=== PATIENT | female | born 1930 | race Caucasian/White ===

== ENCOUNTER → 2016-05-04 | Outpatient (CLI) | payer MEDICARE, BC ==
[~2016-05-04] MED LIST: ASPIRIN 81M81 MG/TA2 PO; BENICAR 20MG TA20 MG PO; BETAPACE 80MG80 MG PO; BYSTOLIC5 MG PO; CALCIUM 500500 M1 PO; CALCIUM 600 PLU1 TAB PO; CARDIZEM CD 12120 MG PO; CARDIZEM CD240 MG PO; CETIRIZINE10 MG PO; COMPAZINE 110 MG/TAB PO; COUMADIN 5MG5 MG/TAB PO; COUMADIN2.5 MG PO; DEXILANT60 MG PO; ELIQUIS 2.5 PO; ELIQUIS 5MG PO; FASLODEX250 MG/5 M IM; FEMARA 2.5MG2.5 MG PO; FENTANYL 25 MCG TD; FERRATE325 MG PO; FLONASE NASAL S16 GM NS; FLONASEALLERGY NS; IMDUR 30MG30 MG/TAB PO; IMDUR30 MG PO; INDERAL40 MG PO; ISOSORBIDE30 MG PO; K-DUR 10 MEQ T10 MEQ PO; K-DUR 2020 MEQ PO; KLOR-CON/EF25 MEQ PO; LANOXIN 0.120.125 MG PO; LASIX 20MG TABL20 MG PO; LASIX 40MG TABL40 MG PO; LEVAQUIN 5500 MG/TA1 PO; LEVOTHYROXINE0.1 MG PO; LISINOPRIL5 MG PO; LOPRESSOR 550 MG/TAB PO; MAG-OX 400400 MG/TAB PO; MAGNESIUM OXIDE PO; MUCINEX DM 30 M1 TE1 PO; MULTAQ400 MG PO; NATURAL POTASS595 MG PO; NEXIUM40 MG PO; NORCO 325 MG-101 TAB PO; OXY IR5 MG PO; PACERONE100 MG; PACERONE200 MG PO; PLAVIX 75MG TAB75 MG PO; PROTONIX 40MG T40 MG PO; PROVERA PO; SYNTHROID0.05 MG/TA PO; SYNTHROID0.125 MG/T PO; TIKOSYN0.25 MG PO; TOPROL XL 50MG50 MG PO; TOPROL XL50 MG PO; ULTRAM50 MG PO; VICODIN 5/5001 UDTAB PO; VITAMIN C500 MG PO; XARELTO20 MG PO; ZESTRIL 10MG10 MG PO; ZOCOR 20MG20 MG PO; ZOFRAN8 MG PO; ZYLOPRIM 100MG100 MG PO; ZYRTEC 10MG10 MG PO
== END ==
LOC: COL.RAD 09:55
DX: N28.1 Cyst of kidney, acquired (principal); R31.0 Gross hematuria; M41.86 Other forms of scoliosis, lumbar region; R93.7 Abnormal findings on diagnostic imaging of other parts of musculoskeletal system; K57.90 Diverticulosis of intestine, part unspecified, without perforation or abscess without bleeding
CPT/HCPCS: Q9967

== ENCOUNTER 2016-06-30 11:18 | Day surgery (SDC) | payer MEDICARE, BC ==
[~2016-06-30] VITALS: Ht 167.6 cm; Wt 65.4 kg
[~2016-06-30 11:18] MED LIST changes: -CALCIUM 600 PLU1 TAB PO; -FENTANYL 25 MCG TD; -FLONASEALLERGY NS; -NORCO 325 MG-101 TAB PO; -OXY IR5 MG PO; -PACERONE100 MG; -PACERONE200 MG PO; -TOPROL XL 50MG50 MG PO
[2016-06-30 12:30] LABS: INR 1.8 (0.8-3.0)
[2016-06-30 12:37] LABS: POTASSIUM 4.4 mmol/L (3.4-5.0)
[2016-06-30 12:58] VITALS: BP 131/64; PULSE 60; TEMP 97.7
[2016-06-30 13:12] LABS: THYROID STIMULATING HORMONE 3.31 uIU/mL (0.465-4.680)
== END 2016-06-30 13:41 ==
LOC: EUO 11:18 → COL.RAD 11:45 → EUO 13:41
PROVIDERS: Internal Medicine Interventional Cardiology
DX: I48.91 Unspecified atrial fibrillation (principal); Z95.0 Presence of cardiac pacemaker

== ENCOUNTER 2016-09-01 20:10 | Inpatient (IN) | payer MEDICARE, BC ==
[~2016-09-01] VITALS: Ht 167.6 cm; Wt 68.9 kg
[2016-09-01 20:54] LABS: BASO % 0.3 % (0.0-2.0); EOS # 0.1 (0.0-0.7); EOS % 1.3 % (0-4.0); GRAN % 63.8 % (42.2-75.2); LYMPH # 2.8 (1.2-3.4); LYMPH % 25.5 % (20.0-51.0); MEAN CELL VOLUME 100 fl (80.0-100.0); MEAN CORPUSCULAR HGB CONC 33 g/dl (33.0-37.0); MEAN PLATELET VOLUME 10.2 fl (7.4-10.4); MONO # 0.9 (0.1-0.6); MONO % 8.6 % (1.7-9.3); PLATELET COUNT 222 K/mm3 (130-400); RED BLOOD COUNT 3.57 M/mm3 (4.10-5.30); REDCELL DISTRIBUTION WIDTH-CV 13.9 % (11.5-14.5); WHITE BLOOD COUNT 10.9 K/mm3 (4.8-10.8)
[2016-09-01 20:56] LABS: HEMATOCRIT 35.7 % (37.0-47.0); HEMOGLOBIN 11.6 g/dl (12.5-16.0); MEAN CORPUSCULAR HEMOGLOBIN 32 pg (27.0-31.0)
[2016-09-01 21:02] LABS: ALBUMIN 3.8 gm/dL (3.5-5.0); BILIRUBIN,TOTAL 0.8 mg/dL (0.0-1.0); CREATININE, serum 2.29 mg/dL (0.52-1.25); POTASSIUM 3.1 mmol/L (3.4-5.0); TOTAL PROTEIN 7.1 gm/dL (6.4-8.2)
[2016-09-01 21:03] LABS: ADJUSTED CALCIUM 14.1 mg/dL (8.4-10.2); CALCIUM 13.9 mg/dL (8.4-10.2)
[2016-09-01 21:16] LABS: PH 7 (5-8); SQUAMOUS EPITHELIAL 0-2 /hpf; URINE APPEARANCE Cloudy; URINE BACTERIA None Seen /hpf; URINE BILIRUBIN Negative (NEGATIVE); URINE BLOOD 3+ (NEGATIVE); URINE COLOR Yellow; URINE GLUCOSE Negative (NEGATIVE); URINE KETONE Negative (NEGATIVE); URINE RBC >50 /hpf; URINE UROBILINOGEN Negative (NEGATIVE)
[2016-09-01] MEDS ORDERED: PACERONE100 MG (21:21)
[2016-09-01 21:31] LABS: INR 2.2 (0.8-3.0); PROTHROMBIN TIME 25.4 SECONDS (9.7-12.8)
[2016-09-01] MEDS ORDERED: LASIX 40MG TABL40 MG PO (23:02)
[2016-09-01] MEDS ORDERED: PACERONE200 MG PO (23:28)
[2016-09-01] MEDS ORDERED: FLONASEALLERGY NS (23:30)
[2016-09-01] MEDS ORDERED: NORCO 325 MG-101 TAB PO (23:34)
[2016-09-02 00:25] VITALS: BP 121/56; PULSE 63; TEMP 97.3
[2016-09-02] MEDS ORDERED: FENTANYL 25 MCG TD (00:45)
[2016-09-02] MEDS ORDERED: TOPROL XL 50MG50 MG PO (01:27)
[2016-09-02] MEDS ORDERED: PROTONIX 40MG T40 MG PO (01:29)
[2016-09-02] MEDS ORDERED: OXY IR5 MG PO (01:35)
[2016-09-02] MEDS ORDERED: MAG-OX 400400 MG/TAB PO (01:36)
[2016-09-02] MEDS ORDERED: CALCIUM 600 PLU1 TAB PO (01:37)
[2016-09-02 01:39] LABS: MAGNESIUM 2.5 mg/dL (1.6-2.3)
[2016-09-02] MEDS ORDERED: LOPRESSOR 550 MG/TAB PO (01:43)
[2016-09-02 02:10] LABS: THYROID STIMULATING HORMONE 5.55 uIU/mL (0.465-4.680)
[2016-09-02 02:51] LABS: THYROXINE (T4)-TOTAL 10.9 ug/dL (5.5-11.0)
[2016-09-02 03:33] LABS: BASO % 0.2 % (0.0-2.0); EOS # 0.1 (0.0-0.7); GRAN # 8.9 (1.4-6.5); GRAN % 73.6 % (42.2-75.2); HEMATOCRIT 33.3 % (37.0-47.0); HEMOGLOBIN 10.8 g/dl (12.5-16.0); LYMPH # 2.1 (1.2-3.4); LYMPH % 17.1 % (20.0-51.0); MEAN CELL VOLUME 101 fl (80.0-100.0); MEAN CORPUSCULAR HEMOGLOBIN 33 pg (27.0-31.0); MEAN CORPUSCULAR HGB CONC 32 g/dl (33.0-37.0); MONO # 0.9 (0.1-0.6); MONO % 7.6 % (1.7-9.3); PLATELET COUNT 176 K/mm3 (130-400); RED BLOOD COUNT 3.31 M/mm3 (4.10-5.30); WHITE BLOOD COUNT 12.1 K/mm3 (4.8-10.8)
[2016-09-02 03:42] LABS: CREATININE, serum 2.06 mg/dL (0.52-1.25); POTASSIUM 3.6 mmol/L (3.4-5.0)
[2016-09-02 03:50] VITALS: BP 114/56; PULSE 61; TEMP 97.4
[2016-09-02 04:15] LABS: CALCIUM 12.9 mg/dL (8.4-10.2)
[2016-09-02 09:08] VITALS: BP 103/60; PULSE 61; TEMP 97.5
[2016-09-02 09:57] LABS: CALCIUM 12.4 mg/dL (8.4-10.2); CREATININE, serum 2.02 mg/dL (0.52-1.25); POTASSIUM 3.4 mmol/L (3.4-5.0)
[2016-09-02] MEDS ORDERED: NATURAL POTASS595 MG PO (11:42)
[2016-09-02 11:43] VITALS: BP 110/53; PULSE 62; TEMP 97
[2016-09-02] MEDS ORDERED: VITAMIN C500 MG PO (11:46)
[2016-09-02 15:21] VITALS: BP 99/52; PULSE 61; TEMP 97.8
[2016-09-02 20:14] VITALS: BP 91/46; PULSE 61; TEMP 98.5
[2016-09-03 00:09] VITALS: BP 91/50; PULSE 62; TEMP 98.5
[2016-09-03 04:14] VITALS: BP 106/50; PULSE 61; TEMP 98.5
[2016-09-03 06:33] LABS: ADD PATHOLOGY DIFF REVIEW NO
[2016-09-03 06:54] LABS: MEAN CORPUSCULAR HGB CONC 31 g/dl (33.0-37.0); MEAN PLATELET VOLUME 10.5 fl (7.4-10.4); PLATELET COUNT 171 K/mm3 (130-400); RED BLOOD COUNT 2.88 M/mm3 (4.10-5.30); REDCELL DISTRIBUTION WIDTH-CV 14.4 % (11.5-14.5); WHITE BLOOD COUNT 10.3 K/mm3 (4.8-10.8)
[2016-09-03 06:55] LABS: HEMATOCRIT 30.8 % (37.0-47.0); HEMOGLOBIN 9.5 g/dl (12.5-16.0); MEAN CELL VOLUME 107 fl (80.0-100.0); MEAN CORPUSCULAR HEMOGLOBIN 33 pg (27.0-31.0)
[2016-09-03 07:13] LABS: ADJUSTED CALCIUM 12.9 mg/dL (8.4-10.2); ALBUMIN 2.6 gm/dL (3.5-5.0); BILIRUBIN,TOTAL 0.6 mg/dL (0.0-1.0); CALCIUM 11.8 mg/dL (8.4-10.2); CREATININE, serum 1.68 mg/dL (0.52-1.25); MAGNESIUM 2.1 mg/dL (1.6-2.3); POTASSIUM 4.1 mmol/L (3.4-5.0); TOTAL PROTEIN 5.3 gm/dL (6.4-8.2)
[2016-09-03 08:22] VITALS: BP 109/50; PULSE 60; TEMP 97.6
[2016-09-03 08:28] LABS: BAND 23 % (0-10); NEUTROPHILS 54 % (42.0-75.2); TOTAL CELLS COUNTED 100
[2016-09-03 12:18] VITALS: BP 105/50; PULSE 63; TEMP 97.4
[2016-09-03 15:38] VITALS: BP 101/49; PULSE 59; TEMP 97.4
[2016-09-03 20:26] VITALS: BP 107/52; PULSE 61; TEMP 97.7
[2016-09-04 00:06] VITALS: BP 105/46; PULSE 64; TEMP 97.5
[2016-09-04 05:10] VITALS: BP 107/48; PULSE 61; TEMP 98.8
[2016-09-04 09:05] VITALS: BP 128/41; PULSE 60; TEMP 97.2
[2016-09-04 09:23] LABS: CALCIUM 10.3 mg/dL (8.4-10.2); CREATININE, serum 1.49 mg/dL (0.52-1.25); MAGNESIUM 1.9 mg/dL (1.6-2.3); POTASSIUM 4.6 mmol/L (3.4-5.0)
[2016-09-04 11:57] LABS: BASO % 0.2 % (0.0-2.0); EOS # 0.1 (0.0-0.7); EOS % 2.1 % (0-4.0); GRAN # 4.1 (1.4-6.5); GRAN % 62.3 % (42.2-75.2); LYMPH # 1.7 (1.2-3.4); LYMPH % 26.4 % (20.0-51.0); MEAN CELL VOLUME 108 fl (80.0-100.0); MEAN CORPUSCULAR HGB CONC 30 g/dl (33.0-37.0); MEAN PLATELET VOLUME 10.8 fl (7.4-10.4); MONO # 0.6 (0.1-0.6); MONO % 8.5 % (1.7-9.3); PLATELET COUNT 143 K/mm3 (130-400); RED BLOOD COUNT 2.69 M/mm3 (4.10-5.30); REDCELL DISTRIBUTION WIDTH-CV 14.6 % (11.5-14.5); WHITE BLOOD COUNT 6.6 K/mm3 (4.8-10.8)
[2016-09-04 12:00] LABS: HEMATOCRIT 29.1 % (37.0-47.0); HEMOGLOBIN 8.8 g/dl (12.5-16.0); MEAN CORPUSCULAR HEMOGLOBIN 33 pg (27.0-31.0)
[2016-09-04 13:32] VITALS: BP 106/50; PULSE 64; TEMP 97.7
[2016-09-04 16:49] VITALS: BP 104/47; PULSE 65; TEMP 97.5
[2016-09-04 21:07] VITALS: BP 106/51; PULSE 64; TEMP 97.7
[2016-09-05 00:41] VITALS: BP 101/48; PULSE 64; TEMP 98.4
[2016-09-05 06:04] VITALS: BP 105/48; PULSE 60; TEMP 98.1
[2016-09-05 07:57] VITALS: BP 106/65; PULSE 64; TEMP 98
[2016-09-05 09:14] LABS: BASO % 0.1 % (0.0-2.0); EOS # 0.2 (0.0-0.7); EOS % 2.5 % (0-4.0); GRAN # 4.1 (1.4-6.5); GRAN % 57.6 % (42.2-75.2); LYMPH % 28.3 % (20.0-51.0); MEAN CELL VOLUME 107 fl (80.0-100.0); MEAN CORPUSCULAR HGB CONC 31 g/dl (33.0-37.0); MEAN PLATELET VOLUME 10.7 fl (7.4-10.4); MONO # 0.8 (0.1-0.6); MONO % 10.9 % (1.7-9.3); PLATELET COUNT 125 K/mm3 (130-400); RED BLOOD COUNT 2.92 M/mm3 (4.10-5.30); REDCELL DISTRIBUTION WIDTH-CV 14.6 % (11.5-14.5); WHITE BLOOD COUNT 7.1 K/mm3 (4.8-10.8)
[2016-09-05 09:15] LABS: HEMATOCRIT 31.3 % (37.0-47.0); HEMOGLOBIN 9.6 g/dl (12.5-16.0); MEAN CORPUSCULAR HEMOGLOBIN 33 pg (27.0-31.0)
[2016-09-05 12:09] VITALS: BP 117/51; PULSE 64; TEMP 97.9
[2016-09-05 14:27] LABS: CALCIUM 9.6 mg/dL (8.4-10.2); CREATININE, serum 1.27 mg/dL (0.52-1.25); POTASSIUM 4.6 mmol/L (3.4-5.0)
[2016-09-05 16:11] VITALS: BP 111/54; PULSE 60; TEMP 97.7
[2016-09-05 22:35] VITALS: BP 113/58; PULSE 63; TEMP 98.6
[2016-09-06 03:51] VITALS: BP 108/50; PULSE 60; TEMP 98.6
[2016-09-06 07:19] VITALS: BP 113/90; PULSE 58; TEMP 97.6
[2016-09-06 07:21] LABS: MEAN CELL VOLUME 106 fl (80.0-100.0); MEAN CORPUSCULAR HGB CONC 31 g/dl (33.0-37.0); MEAN PLATELET VOLUME 10.8 fl (7.4-10.4); PLATELET COUNT 148 K/mm3 (130-400); RED BLOOD COUNT 3.06 M/mm3 (4.10-5.30); REDCELL DISTRIBUTION WIDTH-CV 14.6 % (11.5-14.5); WHITE BLOOD COUNT 7.1 K/mm3 (4.8-10.8)
[2016-09-06 07:23] LABS: HEMATOCRIT 32.5 % (37.0-47.0); HEMOGLOBIN 9.9 g/dl (12.5-16.0); MEAN CORPUSCULAR HEMOGLOBIN 32 pg (27.0-31.0)
[2016-09-06 07:26] LABS: CALCIUM 9.4 mg/dL (8.4-10.2); CREATININE, serum 1.23 mg/dL (0.52-1.25); POTASSIUM 4.8 mmol/L (3.4-5.0)
[2016-09-06 12:10] VITALS: BP 100/55; PULSE 69; TEMP 97.5
[2016-09-06 15:28] VITALS: BP 110/50; PULSE 60; TEMP 97.8
[2016-09-06 20:28] VITALS: BP 116/65; PULSE 62; TEMP 97.7
[2016-09-07 00:16] VITALS: BP 118/64; PULSE 64; TEMP 98.5
[2016-09-07 04:32] VITALS: BP 118/49; PULSE 65; TEMP 97.7
[2016-09-07 06:51] LABS: CALCIUM 9.8 mg/dL (8.4-10.2); CREATININE, serum 1.22 mg/dL (0.52-1.25)
[2016-09-07 08:22] VITALS: BP 121/47; PULSE 61; TEMP 98.1
[2016-09-07 09:50] VITALS: BP 121/47; PULSE 61; TEMP 98.1
[2016-09-07] MEDS ORDERED: FENTANYL 25 MCG TD (10:17)
[2016-09-07] MEDS ORDERED: OXY IR5 MG PO (10:17)
== END 2016-09-07 11:28 | DRG 682 ==
LOC: COL.ER 20:10 → MEDICAL 22:46
PROVIDERS: Family Medicine; Internal Medicine; Nurse Practitioner Family
DX: N17.9 Acute kidney failure, unspecified (principal); E43 Unspecified severe protein-calorie malnutrition; C79.51 Secondary malignant neoplasm of bone; I50.32 Chronic diastolic (congestive) heart failure; E86.0 Dehydration; E83.52 Hypercalcemia; E87.6 Hypokalemia; Z85.3 Personal history of malignant neoplasm of breast; I48.91 Unspecified atrial fibrillation; I11.0 Hypertensive heart disease with heart failure; Z79.01 Long term (current) use of anticoagulants; Z86.718 Personal history of other venous thrombosis and embolism; I34.0 Nonrheumatic mitral (valve) insufficiency; D64.9 Anemia, unspecified; R31.9 Hematuria, unspecified
CPT/HCPCS: 99223-AI; 99232-AI; 99233-AI; 99239; J0692; J2270; J2405; J3480; J3489; J7030